=== PATIENT | male | born 1995 | race Caucasian/White ===

== ENCOUNTER 2021-09-13 13:36 | Emergency (ER) | payer SELFPAY ==
[2021-09-13 14:01] VITALS: BP 103/70; PULSE 65; RESP 16; TEMP 36.4; O2SAT 97; BMI 23.5
--- NOTE | 2021-09-13 14:10 | W.ED.EYEPROB ---
HPI - Eye Problem General: Chief complaint: Eye Problems Stated complaint: left eye injury Time Seen by Provider: 09/13/21 14:09 History of Present Illness: Patient is a 26-year-old male comes to the ED with left eye complaint. Yesterday evening patient said something got into his left eye and he was having mild pain and redness last night. This morning woke up and his symptoms were worse. Pain and I was rated a 9 out of 10. any light or whenever he opens his eye causes worsening pain. He endorses that it feels like there is something still in his eye. Says any movement of his left eye causes pain as well. He also has some left upper and lower eyelid swelling as well. Associated symptoms: Reports headache(s); Denies fever(s), nausea, neck pain or vomiting Review of Systems Const: Denies: fever(s), chills or fatigue Eyes: Reports: photophobia (Left eye), eye discomfort (Left eye), eye redness (Left eye) and increased production of tears (Left eye); Denies: change in vision ENMT: Denies: throat pain, odynophagia, nasal discharge or nasal congestion Card: Denies: chest pain, palpitations, edema, swelling of feet/ankles, dyspnea on exertion or orthopnea Resp: Denies: dyspnea, productive cough or non-productive cough GI: Denies: abdominal pain, nausea, vomiting, diarrhea, constipation or hematochezia : Denies: flank pain, difficulty urinating, dysuria or hematuria Musc: Denies: neck pain, back pain or extremity swelling Skin/Breast: Denies: rash or new lesions Neuro: Reports: headache(s); Denies: numbness in extremities or weakness in extremities PFS ED PFSH: Medical History (Updated 09/13/21 @ 17:15 by CHIO Valentin) No pertinent family history Surgical History (Updated 09/13/21 @ 17:15 by CHIO Valentin) No pertinent past surgical history Physical Exam Const: COMMON NORMALS: patient oriented x3 and alert GENERAL APPEARANCE: cooperative HENMT: COMMON NORMALS: normocephalic HEAD & SCALP: normocephalic MOUTH: Normal oral and palatal mucosa present THROAT: posterior oropharynx normal and uvula midline Eye: COMMON NORMALS: Equal, round and reactive pupils present PERIORBITAL: periorbital findings abnormal positive left periorbital swelling EYELID: eyelid abnormality left upper eyelid swelling and left lower eyelid swelling CONJUNCTIVA: Yes conjunctival abnormal positive left conjunctival injection diffuse PUPIL: Yes Equal, round and reactive pupils present OTHER: Fluorescein dye and lamp exam performed on left abrasion noted. Neck/C-Spine: COMMON NORMALS: supple GENERAL: Yes normal visual inspection Resp: COMMON NORMALS: normal respiratory effort, No retractions, No use of accessory muscles and clear to auscultation bilaterally AUSCULTATION: clear to auscultation bilaterally Cardio: COMMON NORMALS: regular rate, regular rhythm, S1 normal heart sound present, S2 normal heart sound present, No gallops present (Cardio), No clicks present (Cardio), No murmurs present (Cardio) and Peripheral pulses 2+ throughout RATE: regular rate RHYTHM: regular rhythm HEART SOUNDS: S1 normal heart sound present and S2 normal heart sound present PERIPHERAL PULSES: Peripheral pulses 2+ throughout GI: COMMON NORMALS: Normal to inspection, nondistended, normoactive bowel sounds present, Soft to palpation, non-tender and no masses PALPATION: Yes Soft to palpation : COMMON NORMALS: Yes no CVA tenderness BLADDER/KIDNEY EXAM: Yes no CVA tenderness Back/Pelvis: COMMON NORMALS: no CVA tenderness Extremity: COMMON NORMALS: normal to inspection Neuro: COMMON NORMALS: patient oriented x3 and moves all extremities SENSORIUM/ORIENTATION: Yes alert Skin: GENERAL SKIN EXAM: dry skin Course Vital Signs: Vital signs: Vital Signs Temperature 97.6 F 09/13/21 14:01 Pulse Rate 65 09/13/21 14:01 Respiratory Rate 16 09/13/21 14:01 Blood Pressure 103/70 09/13/21 14:01 Pulse Oximetry 97 09/13/21 14:01 [facility] - Eye Problem Medical Decision Making Patient is a 26 y/o male comes to the ED with left eye pain and redness. Patient thinks something got in his eye last night and his symptoms have worsened today. He has pain with any movement of the left eye along with eyelid swelling. Patient has corneal abrasion on left eye noted after fluorescein dye and lamp exam. Vital stable. Orbital CT done and showed some mild preseptal inflammation but no post septal inflammation noted. Patient got updated tetanus here in the ED today. Patient diagnosed with corneal abrasion and was discharged home with Maxitrol drops and hydrocodone for pain. He was given Dr. Peterson contact information told to call them tomorrow to set up an appointment for further evaluation. Return ED precautions given. Patient resting agree with plan. Lab Data : 09/13/21 15:[address] 09/13/21 14:44 IMPRESSION: Mild soft tissue swelling over the left orbit which appears to be mild preseptal inflammation with no postseptal inflammation. Discharge Plan Discharge Patient Disposition: Home Clinical Impression: Corneal abrasion Qualifiers: Encounter type: initial encounter Laterality: left Qualified Code(s): S05.02XA - Injury of conjunctiva and corneal abrasion without foreign body, left eye, initial encounter Condition: Stable Prescriptions: New Maxitrol 3.5mg/mL-10,000 unit/mL-0.1 % drops,suspension 1 drp ophthalmic (eye) Q6H 7 Days Qty: 5 0RF Discharge Orders: Discharge ED (Routine); Ordered 09/13/21 Ordered By: Mynor Muir Referrals: Yuri Richard, [facility] MANAGER-C [Primary Care Provider] - Discharge Diet: Regular Discharge Activity: Increase activity as tolerated Patient Instructions: Corneal Abrasion (DC), Opioid Safety Activity Restrictions/Additional Instructions: Follow-up with medical provider as directed. Call Dr. Peterson [facility] on Tomorrow morning phone number is [phone]. Address is [facility] [address] Wenceslao Collins. take medications as prescribed. Return to the ER or your medical provider if condition worsens. Please read and understand discharge instructions. If any questions, please ask. Coding Level of Care Code ED Ointment Mill Tender for Tiffanie Fwalta Exam Comprehensive
--- NOTE | 2021-09-13 14:44 | CTR_ITS ---
PROCEDURE INFORMATION: Exam: CT Orbits With Contrast Exam date and time: 09/13/2021 4:02 PM Age: 26 years old Clinical indication: Eye pain; Left; Additional info: Left eye pain, swelling. Pain w/ eye movement TECHNIQUE: Imaging protocol: Computed tomography of the orbits with contrast. Radiation optimization: All CT scans at this facility use at least one of these dose optimization techniques: automated exposure control; mA and/or kV adjustment per patient size (includes targeted exams where dose is matched to clinical indication); or iterative reconstruction. Contrast material: OMNI 350; Contrast volume: 75 ml; Contrast route: INTRAVENOUS (IV); COMPARISON: No relevant prior studies available. RADIATION DOSE METRICS: Total DLP (mGy-cm): 331.28 FINDINGS: Paranasal sinuses: Normal. No air-fluid levels. Orbital cavities: Mild soft tissue swelling over the left orbit which appears to be mild preseptal inflammation with no postseptal inflammation. Bones/joints: No acute fracture. Soft tissues: No significant facial soft tissue swelling. CT/CT orbit BI w con [id number] IMPRESSION: Mild soft tissue swelling over the left orbit which appears to be mild preseptal inflammation with no postseptal inflammation.
[2021-09-13] MEDS: HYDROcodone-acetaminophen 7.5-325 mg Tablet 1 TAB PO (15:11)
[2021-09-13] MEDS: iohexol 350 mg/mL 100 mL Btl IV (16:07)
[2021-09-13] MEDS: fluorescein 1 mg Strip EYE-LEFT (16:31)
[2021-09-13] MEDS: eye irrigation 30 mL Btl EYE-LEFT (16:31)
[2021-09-13] MEDS: tetracaine 0.5% Op Soln 4 mL Btl 1 DROP EYE-LEFT (17:33)
[2021-09-13] MEDS: tetanus-dipt-pertussis 0.5 mL SDV IM (17:33)
[2021-09-13 17:34] VITALS: PULSE 61; RESP 15; O2SAT 98
== END 2021-09-13 17:35 | disposition home or self-care (01) ==
PROVIDERS: Emergency Provider Physician Assistant; PCP Nurse Practitioner
DX: S05.02XA Injury of conjunctiva and corneal abrasion without foreign body, left eye, initial encounter (principal); X58.XXXA Exposure to other specified factors, initial encounter; Z23 Encounter for immunization
CPT/HCPCS: 70481; 85025; 90471; 90715; 99283; Q9967

== ENCOUNTER 2022-01-30 20:17 | Emergency (ER) | payer SELFPAY ==
[2022-01-30 20:50] VITALS: BP 121/78; PULSE 65; RESP 16; TEMP 36.8; O2SAT 99; BMI 22.7
[2022-01-30 21:08] LABS: Basophils % 0.4 %; Eosinophils % 0.2 %; Hematocrit 44.9 % (42.0-52.0); Hemoglobin 15.2 g/dL (11.7-16.6); Lymphocytes # 2.3 10^3/uL (0.8-4.8); Lymphocytes % 27.3 %; Mean Corpuscular HGB Conc 33.9 g/dL (30.0-36.0); Mean Corpuscular Volume 91.4 fl (80-94); Mean Platelet Volume 8.8 fL (7.4-10.4); Monocytes # 0.9 10^3/uL (0.2-0.9); Monocytes % 10.5 %; Neutrophils # 5.06 10^3/uL (1.8-7.7); Neutrophils % 61.2 %; Nucleated Red Blood Cells % 0 %; Platelet Count 323 10^3/cmm (130-400); Red Blood Count 4.91 10^6/uL (4.1-5.3); Red Cell Distribution Width 13.1 % (12.1-15.1); White Blood Count 8.3 10^3/uL (4.0-10.0)
[2022-01-30 21:39] LABS: Alanine Aminotransferase 20 U/L (0-41); Albumin Level 4.7 g/dL (3.5-5.2); Alkaline Phosphatase 67 U/L (40-130); Anion Gap 14.9 (5-19); Aspartate Amino Transferase 18 U/L (0-40); Blood Urea Nitrogen 18 mg/dL (6-20); Calcium 9.9 mg/dL (8.5-10.5); Carbon Dioxide 28 mmol/L (22-29); Chloride 100 mmol/L (98-107); Globulin 3.4 g/dL (1.3-4.6); Glomerular Filtration Rate 116.9 mL/min (90-130); Glucose 90 mg/dL (65-115); Lipase 21 U/L (13-60); Osmolality Calculated 289 mOsm/kg (285-295); Potassium 3.9 mmol/L (3.5-5.1); Sodium 139 mmol/L (136-145); Total Bilirubin 0.3 mg/dL (0.15-1.2); Total Protein 8.1 g/dL (6.6-8.7)
== END 2022-01-30 22:45 | disposition left against medical advice (07) ==
PROVIDERS: Emergency Medicine; Emergency Provider Family Medicine; PCP Nurse Practitioner
DX: Z53.21 Procedure and treatment not carried out due to patient leaving prior to being seen by health care provider (principal)
CPT/HCPCS: 80053; 83690; 85025; 99283

== ENCOUNTER → 2022-02-09 12:05 | Outpatient (BNVA) | payer SELFPAY | PROVIDERS: PCP Nurse Practitioner; Visit Provider Nurse Practitioner Family | DX: R11.10 Vomiting, unspecified (principal) | CPT/HCPCS: 87400 ==

== ENCOUNTER 2022-10-04 14:16 | Inpatient (IN) | payer SELFPAY ==
[2022-10-04 14:20] VITALS: BP 117/79; PULSE 67; RESP 16; O2SAT 97
[2022-10-04 14:48] LABS: Basophils % 0.7 %; Eosinophils % 0.5 %; Hemoglobin 14.6 g/dL (11.7-16.6); Lymphocytes # 1.5 10^3/uL (0.8-4.8); Lymphocytes % 25.9 %; Mean Corpuscular HGB Conc 33.2 g/dL (30.0-36.0); Mean Corpuscular Volume 90.5 fl (80-94); Mean Platelet Volume 9.1 fL (7.4-10.4); Monocytes # 0.4 10^3/uL (0.2-0.9); Monocytes % 6.1 %; Neutrophils # 3.88 10^3/uL (1.8-7.7); Neutrophils % 66.3 %; Nucleated Red Blood Cells % 0 %; Platelet Count 347 10^3/cmm (130-400); Red Blood Count 4.86 10^6/uL (4.1-5.3); Red Cell Distribution Width 13.8 % (12.1-15.1); White Blood Count 5.9 10^3/uL (4.0-10.0)
[2022-10-04 15:05] LABS: Alanine Aminotransferase 10 U/L (0-41); Albumin Level 4.8 g/dL (3.5-5.2); Alkaline Phosphatase 55 U/L (40-130); Anion Gap 14.2 (5-19); Aspartate Amino Transferase 17 U/L (0-40); Blood Urea Nitrogen 14 mg/dL (6-20); Calcium 9.6 mg/dL (8.5-10.5); Carbon Dioxide 27 mmol/L (22-29); Chloride 105 mmol/L (98-107); Globulin 2.6 g/dL (1.3-4.6); Glomerular Filtration Rate 101.2 mL/min (90-130); Glucose 96 mg/dL (65-115); Osmolality Calculated 294 mOsm/kg (285-295); Potassium 4.2 mmol/L (3.5-5.1); Sodium 142 mmol/L (136-145); Total Bilirubin 0.3 mg/dL (0.15-1.2); Total Protein 7.4 g/dL (6.6-8.7)
[2022-10-04 15:06] LABS: Acetaminophen < 5.0 ug/mL (10-30); Alcohol Level < 10 mg/dL (0-10); Salicylate < 0.3 mg/dL (3-10)
--- NOTE | 2022-10-04 15:30 | ED.C_ITS ---
HPI - Psych General: Chief Complaint: Psychiatric Symptoms Stated Complaint: DEPRESSION/ STRESS Time Seen by Provider: 10/04/22 14:19 Source: patient and EMS Mode of arrival: EMS Limitations: no limitations History of Present Illness: 27-year-old male states over the last year has been dealing with severe depression he states his dad a year ago and he has been severely depressed and its almost every restrain he is feeling worse he denies being suicidal homicidal but states he is just having extreme feelings of worthlessness he is not on any meds has not seen a psychiatrist in the past. He states he feels like he is to the point where he needs to be admitted to get help. Associated symptoms: Reports depression Review of Systems Const: Denies: fever(s) or chills Eyes: Denies: eye discomfort ENMT: Denies: throat pain or dental pain Card: Denies: chest pain Resp: Denies: dyspnea GI: Denies: abdominal pain, nausea or vomiting Musc: Denies: neck pain or back pain Skin/Breast: Denies: rash Neuro: Denies: headache(s) Psych: Reports: depression [facility] ED PFSH: Medical History No pertinent family history Psychiatric care Surgical History No pertinent past surgical history Physical Exam Const: COMMON NORMALS: no acute distress, patient oriented x3 and healthy appe aring HENMT: COMMON NORMALS: normocephalic and atraumatic HEAD & SCALP: normocephalic and atraumatic Eye: COMMON NORMALS: Equal, round and reactive pupils present PUPIL: Yes Equal, round and reactive pupils present Neck/C-Spine: COMMON NORMALS: full ROM and supple Chest: COMMONS NORMALS: normal inspection of the chest Resp: COMMON NORMALS: normal respiratory effort Cardio: COMMON NORMALS: regular rate, regular rhythm and No murmurs present (Cardio) RATE: regular rate RHYTHM: regular rhythm GI: INSPECTION: Yes normal to inspection Extremity: COMMON NORMALS: normal to inspection and full ROM Neuro: COMMON NORMALS: patient oriented x3, moves all extremities and no focal motor deficits Psych: COMMON NORMALS: mental status grossly normal, Normal thought process present and cooperative MOOD & AFFECT: Yes depressed mood THOUGHT PROCESS: Normal thought process present Skin: COMMON NORMALS: no rashes or lesions noted and no wounds GENERAL SKIN EXAM: no rashes or lesions noted Course Vital Signs: Vital signs: Vital Signs Pulse Rate 67 10/04/22 14:20 Respiratory Rate 16 10/04/22 14:20 Blood Pressure 117/79 10/04/22 14:20 Pulse Oximetry 97 10/04/22 14:20 Oxygen Delivery Me thod Room Air 10/04/22 14:20 MDM - Psych Medical Decision Making Patient presents here with depression did speak to psychiatrist will admit him on a voluntary status he is medically cleared Lab Data 10/04/22 14:34 10/04/22 14:34 Laboratory Results WBC 5.9 10^3/uL (4.0-10.0) 10/04/22 14:34 RBC 4.86 10^6/uL (4.1-5.3) 10/04/22 14:34 Hgb 14.6 g/dL (11.7-16.6) 10/04/22 14:34 Hct 44.0 % (42.0-52.0) 10/04/22 14:34 MCV 90.5 fl (80-94) 10/04/22 14:34 MCH 30.0 pg (28.0-34.0) 10/04/22 14:34 MCHC 33.2 g/dL (30.0-36.0) 10/04/22 14:34 RDW 13.8 % (12.1-15.1) 10/04/22 14:34 Plt Count 347 10^3/cmm (130-400) 10/04/22 14:34 MPV 9.1 fL (7.4-10.4) 10/04/22 14:34 Neut % (Auto) 66.3 % 10/04/22 14:34 Lymph % (Auto) 25.9 % 10/04/22 14:34 Mchenry % (Auto) 6.1 % 10/04/22 14:34 Eos % (Auto) 0.5 % 10/04/22 14:34 Baso % (Auto) 0.7 % 10/04/22 14:34 Neut # (Auto) 3.88 10^3/uL (1.8-7.7) 10/04/22 14:34 Lymph # (Auto) 1.5 10^3/uL (0.8-4.8) 10/04/22 14:34 Mchenry # (Auto) 0.4 10^3/uL (0.2-0.9) 10/04/22 14:34 Eos # (Auto) 0.0 10^3/uL (0.0-0.8) 10/04/22 14:34 Baso # (Auto) 0.0 10^3/uL (0.0-0.1) 10/04/22 14:34 Nucleated RBC % (auto) 0 % 10/04/22 14:34 Nucleated RBCs # 0.0 /100WBC 10/04/22 14:34 Sodium 142 mmol/L (136-145) 10/04/22 14:34 Potassium 4.2 mmol/L (3.5-5.1) 10/04/22 14:34 Chloride 105 mmol/L (98-107) 10/04/22 14:34 Carbon Dioxide 27 mmol/L (22-29) 10/04/22 14:34 Anion Gap 14.2 (5-19) 10/04/22 14:34 BUN 14 mg/dL (6-20) 10/04/22 14:34 Creatinine 0.9 mg/dL (0.7-1.2) 10/04/22 14:34 GFR Calculation 101.2 mL/min (90-130) 10/04/22 14:34 Glucose 96 mg/dL (65-115) 10/04/22 14:34 Calculated Osmolality 294 mOsm/kg (285-295) 10/04/22 14:34 Calcium 9.6 mg/dL (8.5-10.5) 10/04/22 14:34 Total Bilirubin 0.3 mg/dL (0.15-1.2) 10/04/22 14:34 AST 17 U/L (0-40) 10/04/22 14:34 ALT 10 U/L (0-41) 10/04/22 14:34 Alkaline Phosphatase 55 U/L (40-130) 10/04/22 14:34 Total Protein 7.4 g/dL (6.6-8.7) 10/04/22 14:34 Albumin 4.8 g/dL (3.5-5.2) 10/04/22 14:34 Globulin 2.6 g/dL (1.3-4.6) 10/04/22 14:34 Salicylates < 0.3 mg/dL (3-10) L 10/04/22 14:34 Acetaminophen < 5.0 ug/mL (10-30) L 10/04/22 14:34 Ethyl Alcohol < 10 mg/dL (0-10) 10/04/22 14:34 Discharge Plan Discharge Patient Disposition: Admitted As Inpatient Admit Provider: Doc Patiño Clinical Impression: Depression Condition: Stable Coding Level of Care Code ED Sales Training Coordinator for Tiffanie Perez
[2022-10-04 17:50] VITALS: BP 119/77; PULSE 66; RESP 16; TEMP 36.8; O2SAT 98
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
[2022-10-04] MEDS: hyDROXYzine 25 mg Capsule 50 MG PO ×2 (18:50→21:35)
[2022-10-04] MEDS: nicotine 2 mg Gum BUCCAL (18:50)
[2022-10-04 21:30] VITALS: BP 118/78; PULSE 73; RESP 19; TEMP 36.9; O2SAT 98
[2022-10-04] MEDS: trazodone 50 mg Tablet PO ×2 (21:35→22:48)
[2022-10-05 06:00] VITALS: RESP 16
--- NOTE | 2022-10-05 07:07 | P.NPUHP_ITS ---
Providers/Chief Complaint Admitting Physician: Doc Patiño MD Primary Care Provider: CULLEN Johnson Chief Complaint: DEPRESSION/ STRESS HPI NPU History of Present Illness Trevor Malone is a 27 year old male who presented to the emergency department with the following report: Chief Complaint: Psychiatric Symptoms Stated Complaint: DEPRESSION/ STRESS Time Seen by Provider: 10/04/22 14:19 Source: patient and EMS Mode of arrival: EMS Limitations: no limitations History of Present Illness: 27-year-old male states over the last year has been dealing with severe depression he states his dad a year ago and he has been severely depressed and its almost every restrain he is feeling worse he denies being suicidal homicidal but states he is just having extreme feelings of worthlessness he is not on any meds has not seen a psychiatrist in the past. He states he feels like he is to the point where he needs to be admitted to get help. Associated symptoms: Reports depression. The patient was admitted to the neuropsychiatric unit for definitive treatment of those issues. The patient reports that he is not currently prescribed psychiatric medications. He reports that when he was younger, he took Adderall for ADHD, which he stopped because he felt he was addicted. He reports that he is here now secondary to his fianc? saying he needed to get help, but she didn?t tell him with what, but she called the police, and they called the paramedics, and he was brought here. He denies previous psychiatric hospitalization. He rep orts that he has been to [facility] but didn?t really get in for an appointment. He reports that he smokes about a pack of cigarettes a day. He endorses a little alcohol use. He denies regular marijuana use, but uses when he ?feels the need for it.? He denies cocaine, methamphetamine, or any other illicit drug use. He denies drug rehabilitation, DUI, or drug related charges. He reports that his mental health issues mostly started when his dad , and the anniversary of his dad?s is coming up. He in October, shortly after his birthday which was [birth year]. His dad was 40 something, he had congestive heart failure and he from a heart attack. He had some anxiety previously, but it got worse after his father ?s . He reports that when he and his girlfriend were having a spat recently, he sat on the bed and could not stop crying, which is when she said he needed to get help. He denies suicidal thoughts or attempts. He denies feelings of hopelessness, helplessness, or worthlessness. He does endorse anxiety, which manifests in some physical symptoms when it is at the w orst. He denies drinking yesterday. He stated he wasn?t sure what made his fianc? that nervous about his behavior yesterday. He denies nightmares or flashbacks. He denies paranoia or auditory or visual hallucinations. PSYCHIATRIC HISTORY: As above. SUBSTANCE ABUSE HISTORY: As above. FAMILY HISTORY: The patient reports mental health issues on both sides of the family. He endorses addiction on dad?s side of the family, questionable on mom?s side of the family. He denies any suicide attempts or completions in the family. DEVELOPMENTAL HISTORY: The patient denies any issues with his mother?s or delivery of him. He learned to walk and talk and met developmental milestones on time. The patient endorses speech therapy, and denies learning support, emotional support, or spe cia education classes, but later reported that he has a learning disability. PSYCHOSOCIAL HISTORY: The patient reports that his mother and father were together when he was born and stayed together until his father?s . He reports that he has a younger brother from that same union. He denies any other children outside of that union. He describes his childhood as pretty easy. He denies CYS involvement. He denies any traumas in his life. He reports that he graduated from high school. He reports that he tried to go to college and dropped out. He endorses being bisexual, with his longest relationship being almost a year, with a female. He denies being or having any children. He has not been in the . He denies a mormon belief system. He reports that he can?t get a job because he has SSI secondary to a learning disability, trouble with reading and information processing. He reports that he has been on disability ever since he was young. He reports that he currently lives in a trailer with his fianc? and a service dog. LEGAL HISTORY: He reports that he was in correction once, for a false accusation, and he got out in one day. MEDICAL HISTORY: The patient denies any known allergies to medications. He reports that he had his tonsils removed. Per his 05/21/22 [facility] outpatient mental health assessment: [facility] Assessment Date of Service: 05/21/22 Time In: 13:00 Time Out: 14:00 Setting: Office Visit (Code:H0002 HO: # 4 Units. Clinical Access Accessment. Client Trevor Malone and [facility] Doris Lara in office. ) Is patient part of the 3700?: No Diagnosis (1) Generalized anxiety disorder: (2) Major depressive disorder, recurrent severe without psychotic features: (3) Post-traumatic stress disorder, unspecified: This diagnosis is based on information provided by patient during initial examination(s). Diagnosis may change as additional information becomes available through course of treatment. Above diagnosis Should Not be used for any purposes other than as a working diagnosis for medical care of the patient, including determination of whether the patient?s condition is sufficiently acute to impair the patient?s ability to work or perform other routine tasks. History of Present Illness Presenting Problem/Chief Complaint: According to Trevor, I have been diagnosed with depression by a counselor in [facility]. I do get anxious a lot, especially when I am in a crowd of people . Lost my dad October 2022, unexpected and i am still struggling with the loss, witnessed him dying . I don't speak about things that are bothering me instead I will take it out on the ones I love. I want to get in for Medication, Therapy and Casemanagment . I do have anger issues and would like help with my anger and managing it. ? Me and my girlfriend are in an open relationship, women only, I get upset too much when these men disrespect my ole lady, that's really when i get mad. I had to move because a girlfriend was causing me trouble. I am unable to work, i have been on disability for a long time. Current Psychiatric and Physical Symptoms:: trouble with sleep, unable to shut off thoughts, has multiple thoughts, will self isolate and shut down won't speak with fiance, emotional eater. Struggles t o manage moods especially anger.? Childhood and Family History Grew up in [place] with mother, father and brother. Went to high school, then in 11th grade moved to [facility]. No abuse no neglect as a child. Met fiance and now has step son that is 4 years old. The mother does n ot have the child.? Abuse/Neglect/Trauma: Trauma Experienced (Past relationship was traumatic, Fa ther passing, Aunt passing ) Current/historical developmental milestones and/or delays:: None reported Accommodations: Literacy assistance (At times hard to read) Family Psychiatric History: Anxiety, Bipolar, Depression and Violent/Abusive Behavior Social History Current Living Environment: Parent/Immediate Family Living environment is reported to be?: Good Reports Feeling: Safe Does patient need help completing personal and oral hygiene?: No Client?s interactions regarding social/peer relationships are: Family and Friends Vocational Information: Disabled Financial Information: Disability Income Client's employment History Disability Does client have valid seasonal driver's license?: No (I.D. ) History: Client denies service Abilities/Interests Likes music, video games, reading, anime Individual's Strengths: Food, Stable Housing, Active Insurance, Transportation Support, Cooperative, Social Supports, Has Hobbies (Camping ) and Good Communication Individual's Obstacles: Limited Income, Low Self-Esteem, Chronic Mental Illness, Medication Non-Compliance and Limited Insight Legal Status/History: Current legal issues denied Demographics Marital Status: life partner (Will be soon ) Ethnicity: Cultural Background: None Reported Spiritual Pursuits: Other (none reported ) Do you think of yourself as: Bisexual Gender Identity: Male What is your pronoun?: he/him/his Language(s) Spoken: [place]al[place] Custody/Guardianship He radha his own guardian Education Highest Education Level Reached: college (Some college ) Academic Performance: Performance at grade level Extracurricular Activities: None and Other (AG class) Special Accommodations: Special Classroom Arrangements (Special ed for most classes) Disciplinary Actions: None Health Is Patient in Pain?: No Primary Care Provider: No Have you been seen by your primary care provider or SENIOR STAFF PSYCHOLOGIST in the past 12 months?: No Meds NPU Home Medications Medication Instructions Recorded Confirmed Last Taken Type No Known Home Medications 10/04/22 10/04/22 Unknown History Allergies Allergy/AdvReac Type Severity Reaction Status Date / Time No Known Allergies Allergy Verified 10/04/22 15:23 PFSH NPU PFSH: Medical History No pertinent family history Psychiatric care Surgical History No pertinent past surgical history Mental Status Exam MSE Comments: This is a well-nourished, well-developed white male, in hospital scrubs, with adequate grooming and eye contact. No abnormal movements except for mild p sychomotor retardation. Cooperative with exam in no acute distress. Speech was normal rate and volume. Mood described as pretty good; affect congruent. Thought process, organized. Thought content: patient denied any suicidal or homicidal ideation, there were no delusions reported or noted, patient denied any auditory or visual hallucinations. Attention, concentration, and memory appeared intact, but none were formally tested. Alert and oriented times three. Insight and judgment are limited. Impulse control is limited. Intellectual ability limited versus impaired. Vitals/I&O/Wt Last Vital Signs Temp 98.5 F 10/04/22 21:30 Pulse 73 10/04/22 21:30 Resp 16 10/05/22 06:00 BP 118/78 10/04/22 21:30 Pulse Ox 98 10/04/22 21:30 O2 Del Method Room Air 10/04/22 21:30 Weight last 48 hrs Weight 68.039 kg Data NPU 10/04/22 14:34 10/04/22 14:34 A&P Assessment and plan (1) Major depressive disorder, recurrent, moderate: (2) Generalized anxiety disorder: (3) Bereavement: (4) Mild intellectual disabilities: (5) Borderline intellectual functioning: Plan This is a 27-year-old, white male, with some history of anxiety, which increased after his father?s , and depression, with a desire to get help with depression and anxiety symptoms. 1. Start Prozac 20 mg p.o. every morning. 2. Encourage individual, group, and milieu therapy. 3. Continue q-15-minute checks for safety. Involuntary Hold Information 96 Hour Hold: 96 Hour Involuntary Admission: No Attestations NPU Medical Necessity Statement*: Inpatient hospitalization is medically necessary and the clinically appropriate intervention, at this time. We will monitor medications and make changes as indicated. Patient will be in the hospital for over two midnights. Likely length of stay is three to five days. Coding Level of Care Code Acute Code for g Fwd Diagnoses Major depressive disorder, recurrent, moderate F33.1 Generalized anxiety disorder F41.1 Bereavement Z63.4 Mild intellectual disabilities F70 Borderline intellectual functioning R41.83
--- NOTE | 2022-10-05 08:54 | PC.NURSE ---
RESTING IN BED AROUSES TO VOICE. PT DENIES PAIN, DENIES SI/HI AND AVH AT THIS TIME. PT IS WITHDRAWN AND ISOLATES TO ROOM. DID GET UP TO EAT BREAKFAST THEN WENT BACK TO BED.
[2022-10-05] MEDS: nicotine 2 mg Gum BUCCAL ×4 (09:09→21:03)
[2022-10-05] MEDS: hyDROXYzine 25 mg Capsule 50 MG PO ×2 (11:15→21:34)
--- NOTE | 2022-10-05 11:16 | PC.NURSE ---
Patient asked to talk with this nurse. During the discussion, patient stated that he didn't want to be here, that he feels trapped. Patient said he called and talked to his mom about it who told him to talk to the doctor. This nurse also encouraged that patient to talk with the doctor. Patient wants to be put on medications. This nurse informed him that the doctor could do that, and that it is beneficial to his care if he is here so we can monitor him to see if the medicaion is working for him or not. This nurse administered 50mg Vistaril to patient. Patient now sitting in dayroom. Will continue to monitor.
[2022-10-05 14:00] VITALS: BP 104/67; PULSE 63; RESP 18; TEMP 36.4; O2SAT 97
[2022-10-05] MEDS: trazodone 50 mg Tablet PO (21:36)
[2022-10-05] MEDS: OLANZapine 5 mg ODT PO (21:36)
[2022-10-05 22:00] VITALS: BP 114/75; PULSE 78; RESP 16; O2SAT 98
[2022-10-06 06:00] VITALS: BP 101/65; PULSE 53; RESP 16; TEMP 37; O2SAT 98
--- NOTE | 2022-10-06 08:38 | W.PM.NPUPNS ---
Subjective NPU Subjective: Patient presented today reporting that he is feeling a little better. He endorsed that the medication seems to be helping and he denied any feelings consistent with how he felt prior to admission. He began his focus on discharge and we discussed the likelihood of discharge in 48 hours. Mental Status Exam MSE Comments: This is a well-nourished, well-developed white male, in hospital scrubs, with adequate grooming and eye contact. No abnormal movements except for mild psychomotor retardation. Cooperative with exam in no acute distress. Speech was normal rate and volume. Mood described as a little better; affect euthymic, but a little odd. Thought process, organized. Thought content: patient denied any suicidal or homicidal ideation, there were no delusions reported or noted, patient denied any auditory or visual hallucinations. Attention, concentration, and memory appeared intact, but none were formally tested. Alert and oriented times three. Insight and judgment are limited. Impulse control is limited. Intellectual ability limited versus impaired. Vitals/I&O/Wt Last Vital Signs Temp 98.6 F 10/06/22 06:00 Pulse 53 L 10/06/22 06:00 Resp 16 10/06/22 06:00 BP 101/65 10/06/22 06:00 Pulse Ox 98 10/06/22 06:00 O2 Del Method Room Air 10/06/22 06:00 Weight last 48 hrs Weight 68.039 kg Data NPU 10/04/22 14:34 10/04/22 14:34 A&P Assessment and plan (1) Major depressive disorder, recurrent, moderate: (2) Generalized anxiety disorder: (3) Bereavement: (4) Mild intellectual disabilities: (5) Borderline intellectual functioning: Plan This is a 27-year-old, white male, with some history of anxiety, which increased after his father?s , and depression, with a desire to get help with depression and anxiety symptoms. 1. Started Prozac 20 mg p.o. every morning. 2. Encourage individual, group, and milieu therapy. 3. Continue q-15-minute checks for safety. Involuntary Hold Information 96 Hour Hold: 96 Hour Involuntary Admission: No Attestations NPU Medical Necessity Statement*: Inpatient hospitalization is medically necessary and the clinically appropriate intervention, at this time. We will monitor medications and make changes as indicated. Likely length of stay is 2-4 days. Coding Level of Care Code Acute Code for Chg Fwd Diagnoses Major depressive disorder, recurrent, moderate F33.1 Generalized anxiety disorder F41.1 Bereavement Z63.4 Mild intellectual disabilities F70 Borderline intellectual functioning R41.83
[2022-10-06] MEDS: fluoxetine 20 mg Capsule PO (09:36)
[2022-10-06] MEDS: nicotine 2 mg Gum BUCCAL ×6 (09:36→22:38)
[2022-10-06 14:00] VITALS: BP 123/88; PULSE 67; RESP 17; TEMP 37; O2SAT 97
[2022-10-06 16:24] LABS: Amphetamines Screen Urine Negative (Negative); Barbiturates Screen Urine Negative (Negative); Benzodiazepines Screen Urine Negative (Negative); Cocaine Screen Urine Negative (Negative); Opiate Screen Urine Negative (Negative); PCP Screen Urine Negative (Negative); THC Screen Urine Positive (Negative)
[2022-10-06] MEDS: trazodone 50 mg Tablet PO (20:26)
[2022-10-06] MEDS: hyDROXYzine 25 mg Capsule 50 MG PO (20:26)
[2022-10-06 21:39] VITALS: BP 125/84; PULSE 77; RESP 17; TEMP 36.7; O2SAT 96
[2022-10-07 06:00] VITALS: BP 120/81; PULSE 76; RESP 18; TEMP 37.1; O2SAT 97
[2022-10-07] MEDS: nicotine 2 mg Gum BUCCAL ×8 (06:50→23:33)
[2022-10-07] MEDS: fluoxetine 20 mg Capsule PO (08:43)
--- NOTE | 2022-10-07 09:01 | P.NPUPN_ITS ---
Subjective NPU Subjective: Patient presented today reporting that he feels much better compared to when he got here. He endorsed the medication is helpful he denied any side effects at this time. He reported working with social work team tomorrow for appropriate follow-up and barring any changes planning for discharge tomorrow. Mental Status Exam MSE Comments: This is a well-nourished, well-developed white male, in hospital scrubs, with adequate grooming and eye contact. No abnormal movements except for mild psychom otor retardation. Cooperative with exam in no acute distress. Speech was normal rate and volume. Mood described as better; affect euthymic, but a little odd. Thought process, organized. Thought content: patient denied any suicidal or homicidal ideation, there were no delusions reported or noted, patient denied any auditory or visual hallucinations. Attention, concentration, and memory appeared intact, but none were formally tested. Alert and oriented times three. Insight and judgment are limited. Impulse control is limited. Intellectual ability limited versus impaired. Vitals/I&O/Wt Last Vital Signs Temp 97.4 F L 10/07/22 14:00 Pulse 77 10/07/22 14:00 Resp 17 10/07/22 14:00 BP 117/77 10/07/22 14:00 Pulse Ox 98 10/07/22 14:00 O2 Del Method Room Air 10/07/22 14:00 Weight last 48 hrs Weight 59.477 kg Weight 59.477 kg Data NPU 10/04/22 14:34 10/04/22 14:34 A&P Assessment and plan (1) Major depressive disorder, recurrent, moderate: (2) Generalized anxiety disorder: (3) Bereavement: (4) Mild intellectual disabilities: (5) Borderline intellectual functioning: Plan This is a 27-year-old, white male, with some history of anxiety, which increased after his father?s , and depression, with a desire to get help with depression and anxiety symptoms. 1. Started Prozac 20 mg p.o. every morning. 2. Encourage individual, group, and milieu therapy. 3. Continue q-15-minute checks for safety. Involuntary Hold Information 96 Hour Hold: 96 Hour Involuntary Admission: No Attestations NPU Medical Necessity Statement*: Inpatient hospitalization is medically necessary and the clinically appropriate intervention, at this time. We will monitor medications and make changes as indicated. Likely length of stay is 1-3 days. Coding Level of Care Code Acute Code for Chg Fwd Diagnoses Major depressive disorder, recurrent, moderate F33.1 Generalized anxiety disorder F41.1 Bereavement Z63.4 Mild intellectual disabilities F70 Borderline intellectual functioning R41.83
[2022-10-07 14:00] VITALS: BP 117/77; PULSE 77; RESP 17; TEMP 36.3; O2SAT 98
[2022-10-07] MEDS: acetaminophen 325 mg Tablet 650 MG PO (15:14)
[2022-10-07 20:00] VITALS: BP 108/68; PULSE 74; RESP 18; TEMP 37; O2SAT 98
[2022-10-07] MEDS: trazodone 50 mg Tablet PO (20:31)
[2022-10-07] MEDS: hyDROXYzine 25 mg Capsule 50 MG PO (20:31)
[2022-10-08 06:00] VITALS: BP 105/67; PULSE 57; RESP 18; TEMP 36.5; O2SAT 97
[2022-10-08] MEDS: fluoxetine 20 mg Capsule PO (08:23)
[2022-10-08] MEDS: nicotine 2 mg Gum BUCCAL ×2 (08:24→12:24)
--- NOTE | 2022-10-08 10:49 | W.PM.NPUDCS ---
Diagnoses at Discharge Discharge Diagnosis (1) Major depressive disorder, recurrent, moderate: Status: Acute (2) Generalized anxiety disorder: Status: Acute (3) Bereavement: Status: Acute (4) Mild intellectual disabilities: Status: Acute (5) Borderline intellectual functioning: Status: Acute Reason for Visit Reason for Visit: DEPRESSION/ STRESS Brief History: Trevor Malone is a 27 year old male who presented to the emergency department with the following report: Chief Complaint: Psychiatric Symptoms Stated Complaint: DEPRESSION/ STRESS Time Seen by Provider: 10/04/22 14:19 Source: patient and EMS Mode of arrival: EMS Limitations: no limitations History of Present Illness: 27-year-old male states over the last year has been dealing with severe depression he states his dad a year ago and he has been severely depressed and its almost every restrain he is feeling worse he denies being suicidal homicidal but states he is just having extreme feelings of worthlessness he is not on any meds has not seen a psychiatrist in the past. He states he feels like he is to the point where he needs to be admitted to get help. Associated symptoms: Reports depression. The patient was admitted to the neuropsychiatric unit for definitive treatment of those issues. The patient reports that he is not currently prescribed psychiatric medications. He reports that when he was younger, he took Adderall for ADHD, which he stopped because he felt he was addicted. He reports that he is here now secondary to his fianc? saying he needed to get help, but she didn?t tell him with what, but she called the police, and they called the paramedics, and he was brought here. He denies previous psychiatric hospitalization. He reports that he has been to [facility] but didn?t really get in for an appointment. He reports that he smokes about a pack of cigarettes a day. He endorses a little alcohol use. He denies regular marijuana use, but uses when he ?feels the need for it.? He denies cocaine, methamphetamine, or any other illicit drug use. He denies drug rehabilitation, DUI, or drug related charges. He reports that his mental health issues mostly started when his dad , and the anniversary of his dad?s is coming up. He in October, shortly after his birthday which was [birth year]. His dad was 40 something, he had congestive heart failure and he from a heart attack. He had some anxiety previously, but it got worse after his father ?s . He reports that when he and his girlfriend were having a spat recently, he sat on the bed and could not stop crying, which is when she said he needed to get help. He denies suicidal thoughts or attempts. He denies feelings of hopelessness, helplessness, or worthlessness. He does endorse anxiety, which manifests in some physical symptoms when it is at the worst. He denies drinking yesterday. He stated he wasn?t sure what made his fianc? that nervous about his behavior yesterday. He denies nightmares or flashbacks. He denies paranoia or auditory or visual hallucinations. PSYCHIATRIC HISTORY: As above. SUBSTANCE ABUSE HISTORY: As above. FAMILY HISTORY: The patient reports mental health issues on both sides of the family. He endorses addiction on dad?s side of the family, questionable on mom?s side of the family. He denies any suicide attempts or completions in the family. DEVELOPMENTAL HISTORY: The patient denies any issues with his mother?s or delivery of him. He learned to walk and talk and met developmental milestones on time. The patient endorses speech therapy, and denies learning support, emotional support, or special education classes, but later reported that he has a learning disability. PSYCHOSOCIAL HISTORY: The patient reports that his mother and father were together when he was born and stayed together until his father?s . He reports that he has a younger brother from that same union. He denies any other children outside of that union. He describes his childhood as pretty easy. He denies CYS involvement. He denies any traumas in his life. He reports that he graduated from high school. He reports that he tried to go to college and dropped out. He endorses being bisexual, with his longest relationship being almost a year, with a female. He denies being or having any children. He has not been in the . He denies a congregational belief system. He reports that he can?t get a job because he has SSI secondary to a learning disability, trouble with reading and information processing. He reports that he has been on disability ever since he was young. He reports that he currently lives in a trailer with his fianc? and a service dog. LEGAL HISTORY: He reports that he was in [facility] once, for a false accusation, and he got out in one day. MEDICAL HISTORY: The patient denies any known allergies to medications. He reports that he had his tonsils removed. Per his 05/21/22 [facility] outpatient mental health assessment: [facility] Assessment Date of Service: 05/21/22 Time In: 13:00 Time Out: 14:00 Setting: Office Visit (Code:H0002 HO: # 4 Units. Clinical Access Accessment. Client Trevor Malone [facility] in office. ) Is patient part of the 3700?: No Diagnosis (1) Generalized anxiety disorder: (2) Major depressive disorder, recurrent severe without psychotic features: (3) Post-traumatic stress disorder, unspecified: This diagnosis is based on information provided by patient during initial examination(s). Diagnosis may change as additional information becomes available through course of treatment. Above diagnosis Should Not be used for any purposes other than as a working diagnosis for medical care of the patient, including determination of whether the patient?s condition is sufficiently acute to impair the patient?s ability to work or perform other routine tasks. History of Present Illness Presenting Problem/Chief Complaint: According to Trevor, I have been diagnosed with depression by a counselor in [facility]. I do get anxious a lot, especially when I am in a crowd of people . Lost my dad October 2022, unexpected and i am still struggling with the loss, witnessed him dying . I don't speak about things that are bothering me instead I will take it out on the ones I love. I want to get in for Medication, Therapy and Casemanagment . I do have anger issues and would like help with my anger and managing it. Me and my girlfriend are in an open relationship, women only, I get upset too much when these men disrespect my ole lady, that's really when i get mad. I had to move because a girlfriend was causing me trouble. I am unable to work, i have been on disability for a long time. Current Psychiatric and Physical Symptoms:: trouble with sleep, unable to shut off thoughts, has multiple thoughts, will self isolate and shut down won't speak with fiance, emotional eater. Struggles to manage moods especially anger. Childhood and Family History Grew up in [place] with mother, father and brother. Went to high school, then in 11th grade moved to [facility]. No abuse no neglect as a child. Met fiance and now has step son that is 4 years old. The mother does n ot have the child. Abuse/Neglect/Trauma: Trauma Experienced (Past relationship was traumatic, Father passing, Aunt passing ) Current/historical developmental milestones and/or delays:: None reported Accommodations: Literacy assistance (At times hard to read) Family Psychiatric History: Anxiety, Bipolar, Depression and Violent/Abusive Behavior Social History Current Living Environment: Parent/Immediate Family Living environment is reported to be?: Good Reports Feeling: Safe Does patient need help completing personal and oral hygiene?: No Client?s interactions regarding social/peer relationships are: Family and Friends Vocational Information: Disabled Financial Information: Disability Income Client's employment History Disability Does client have valid bobcat driver/labor's license?: No (I.D. ) History: Client denies service Abilities/Interests Likes music, video games, reading, anime Individual's Strengths: Food, Stable Housing, Active Insurance, Transportation Support, Cooperative, Social Supports, Has Hobbies (Camping ) and Good Communication Individual's Obstacles: Limited Income, Low Self-Esteem, Chronic Mental Illness, Medication Non-Compliance and Limited Insight Legal Status/History: Current legal issues denied Demographics Marital Status: life partner (Will be soon ) Ethnicity: Cultural Background: None Reported Spiritual Pursuits: Other (none reported ) Do you think of yourself as: Bisexual Gender Identity: Male What is your pronoun?: he/him/his Language(s) Spoken: Syriac Custody/Guardianship He radha his own guardian Education Highest Education Level Reached: college (Some college ) Academic Performance: Performance at grade level Extracurricular Activities: None and Other (AG class) Special Accommodations: Special Classroom Arrangements (Special ed for most classes) Disciplinary Actions: None Health Is Patient in Pain?: No Primary Care Provider: No Have you been seen by your primary care provider or STOCK BROKER SUPERVISOR in the past 12 months?: No Hospital Course Hospital Course He slowly acclimated to the individual, group and milieu therapies provided.? He has been off of his medications for many years maybe back to adolescence. His presentation was fairly amorphous but he did report wanting help with anxiety and depression. We started Prozac 20 mg p.o. daily as well as trazodone 50 mg p.o. daily to assist with sleep. He was able to work with the social work team to identify outpatient/aftercare resources for treatment. He had modest improvement and was able to contract for safety outside of the hospital prior to discharge.? During the hospitalization, patient had routine laboratory studies which were within normal limits except for few outliers.? Additionally there was a general medical evaluation which was also within normal limits and revealed no new acute processes. At the time of discharge, he denied psychosis or lethality.? Mood and anxiety were well managed.? Patient endorsed a plan to avoid all drugs of abuse and follow-up with the aftercare recommendations of the treatment team.? Patient was evaluated and deemed to be absent credible lethality, and had achieved the maximum benefit from an inpatient hospitalization, so was discharged.?? Involuntary Hold Information 96 Hour Hold: 96 Hour Involuntary Admission: No Mental Status Exam MSE Comments: This is a well-nourished, well-developed white male, in hospital scrubs, with adequate grooming and eye contact. No abnormal movements except for mild psychomotor retardation. Cooperative with exam in no acute distress. Speech was normal rate and volume. Mood described as better; affect euthymic, but a little odd. Thought process, organized. Thought content: patient denied any suicidal or homicidal ideation, there were no delusions reported or noted, patient denied any auditory or visual hallucinations. Attention, concentration, and memory appeared intact, but none were formally tested. Alert and oriented times three. Insight and judgment are limited. Impulse control is limited. Intellectual ability limited versus impaired. Discharge Data Studies Completed and Pending: Laboratory Results WBC 5.9 10^3/uL (4.0- 10.0) 10/04/22 14:34 RBC 4.86 10^6/uL (4.1 -5.3) 10/04/22 14:34 Hgb 14.6 g/dL (11.7-1 6.6) 10/04/22 14:34 Hct 44.0 % (42.0-52.0 ) 10/04/22 14:34 MCV 90.5 fl (80-94) 10/04/22 14:34 MCH 30.0 pg (28.0-34. 0) 10/04/22 14:34 MCHC 33.2 g/dL (30.0-3 6.0) 10/04/22 14:34 RDW 13.8 % (12.1-15.1 ) 10/04/22 14:34 Plt Count 347 10^3/cmm (130 -400) 10/04/22 14:34 MPV 9.1 fL (7.4-10.4) 10/04/22 14:34 Neut % (Auto) 66.3 % 10/04/22 14:34 Lymph % (Auto) 25.9 % 10/04/22 14:34 Cocke % (Auto) 6.1 % 10/04/22 14:34 Eos % (Auto) 0.5 % 10/04/22 14:34 Baso % (Auto) 0.7 % 10/04/22 14:34 Neut # (Auto) 3.88 10^3/uL (1.8 -7.7) 10/04/22 14:34 Lymph # (Auto) 1.5 10^3/uL (0.8- 4.8) 10/04/22 14:34 Cocke # (Auto) 0.4 10^3/uL (0.2- 0.9) 10/04/22 14:34 Eos # (Auto) 0.0 10^3/uL (0.0- 0.8) 10/04/22 14:34 Baso # (Auto) 0.0 10^3/uL (0.0- 0.1) 10/04/22 14:34 Nucleated RBC % (a uto) 0 % 10/04/22 14:34 Nucleated RBCs # 0.0 /100WBC 10/04/22 14:34 Sodium 142 mmol/L (136-1 45) 10/04/22 14:34 Potassium 4.2 mmol/L (3.5-5 .1) 10/04/22 14:34 Chloride 105 mmol/L (98-10 7) 10/04/22 14:34 Carbon Dioxide 27 mmol/L (22-29) 10/04/22 14:34 Anion Gap 14.2 (5-19) 10/04/22 14:34 BUN 14 mg/dL (6-20) 10/04/22 14:34 Creatinine 0.9 mg/dL (0.7-1. 2) 10/04/22 14:34 GFR Calculation 101.2 mL/min (90- 130) 10/04/22 14:34 Glucose 96 mg/dL (65-115) 10/04/22 14:34 Calculated Osmolal ity 294 mOsm/kg (285- 295) 10/04/22 14:34 Calcium 9.6 mg/dL (8.5-10 .5) 10/04/22 14:34 Total Bilirubin 0.3 mg/dL (0.15-1 .2) 10/04/22 14:34 AST 17 U/L (0-40) 10/04/22 14:34 ALT 10 U/L (0-41) 10/04/22 14:34 Alkaline Phosphata se 55 U/L (40-130) 10/04/22 14:34 Total Protein 7.4 g/dL (6.6-8.7 ) 10/04/22 14:34 Albumin 4.8 g/dL (3.5-5.2 ) 10/04/22 14:34 Globulin 2.6 g/dL (1.3-4.6 ) 10/04/22 14:34 Salicylates < 0.3 mg/dL (3-10 ) L 10/04/22 14:34 Urine Opiates Scre en Negative ng/mL (N egative) 10/06/22 15:40 Acetaminophen < 5.0 ug/mL (10-3 0) L 10/04/22 14:34 Ur Barbiturates Sc reen Negative ng/mL (N egative) 10/06/22 15:40 Ur Phencyclidine S crn Negative ng/mL (N egative) 10/06/22 15:40 Ur Amphetamines Sc reen Negative ng/mL (N egative) 10/06/22 15:40 U Benzodiazepines Scrn Negative ng/mL (N egative) 10/06/22 15:40 Urine Cocaine Scre en Negative ng/mL (N egative) 10/06/22 15:40 U Marijuana (THC) Screen Positive ng/mL (N egative) H 10/06/22 15:40 Ethyl Alcohol < 10 mg/dL (0-10) 10/04/22 14:34 Vitals: Last Vital Signs Temp 97.7 F 10/08/22 06:00 Pulse 57 L 10/08/22 06:00 Resp 18 10/08/22 06:00 BP 105/67 08/14/23 06:00 Pulse Ox 97 10/08/22 06:00 O2 Del Method Room Air 10/08/22 06:00 Discharge Plan Discharge Patient Disposition: Home Condition: Stable Prescriptions: New trazodone 50 mg Tablet 50 mg PO BEDTIME PRN (Reason: Sleep) 30 Days Qty: 30 1RF fluoxetine 20 mg Capsule 20 mg PO DAILY 30 Days Qty: 30 1RF No Action No Known Home Medications Discharge Orders: Discharge Order (Routine); Ordered 10/08/22 Ordered By: Doc Patiño Referrals: [facility] [Outside] - 10/11/22 11:30 am (Initial appointment) Discharge Diet: Regular Discharge Activity: Resume usual activity Patient Instructions: Fluoxetine (By mouth), Trazodone (By mouth), Opioid Safety Discharge Attestations NPU Time Spent in Discharge Care*: less than 30 min Specific Discharge Activities: Specific discharge activities: educating patient, discussing with community case manager/social workers/dc planners, documenting/other paperwork and evaluating patient/reviewing data Coding Level of Care Code Acute Chg FW DC note Diagnoses Major depressive disorder, recurrent, moderate F33.1 Generalized anxiety disorder F41.1 Bereavement Z63.4 Mild intellectual disabilities F70 Borderline intellectual functioning R41.83
[2022-10-08 10:58] VITALS: BP 105/67; PULSE 57; RESP 18; TEMP 36.5; O2SAT 97
== END 2022-10-08 13:01 | disposition home or self-care (01) | DRG 885 ==
LOC: ER 14:39 → NP 14:58
PROVIDERS: Admitting Provider Psychiatry & Neurology Psychiatry; Emergency Provider Emergency Medicine; PCP Nurse Practitioner; Visit Provider Psychiatry & Neurology Psychiatry
DX: F33.1 Major depressive disorder, recurrent, moderate (principal); F41.1 Generalized anxiety disorder; Z63.4 Disappearance and death of family member; F70 Mild intellectual disabilities
CPT/HCPCS: 36415; 80053; 80306; 80307; 85025; 97165; 99238; 99285

== ENCOUNTER 2025-01-16 17:19 | Emergency (ER) | payer SELFPAY ==
[2025-01-16 17:23] VITALS: BP 104/65; PULSE 59; RESP 14; TEMP 36.8; O2SAT 99; BMI 22.4
--- NOTE | 2025-01-16 18:16 | CTR_ITS ---
PROCEDURE INFORMATION: Exam: CT Abdomen And Pelvis Without Contrast Exam date and time: 01/16/2025 6:31 PM Age: 29 years old Clinical indication: Abdominal pain; Right; C/O RT flank pain x 3 days; Additional info: R flank radiating pain TECHNIQUE: Imaging protocol: Computed tomography of the abdomen and pelvis without contrast. Radiation optimization: All CT scans at this facility use at least one of these dose optimization techniques: automated exposure control; mA and/or kV adjustment per patient size (includes targeted exams where dose is matched to clinical indication); or iterative reconstruction. COMPARISON: CR XR chest 1V [id number] 02/03/2019 9:18 AM RADIATION DOSE METRICS: Total DLP (mGy-cm): 332.22 FINDINGS: Liver: Normal. No mass. Gallbladder and biliary ducts: Normal. No calcified stones. No ductal dilation. Pancreas: Normal. No ductal dilation. Spleen: Normal. No splenomegaly. Adrenal glands: Normal. No mass. Kidneys and ureters: Normal. No hydronephrosis. Stomach and bowel: Suggestion of few scattered colonic diverticula without definite significant acute inflammatory changes. Appendix: No evidence of appendicitis. Intraperitoneal space: Unremarkable. No free air. No significant fluid collection. Vasculature: Unremarkable. No abdominal aortic aneurysm. Lymph nodes: Unremarkable. No enlarged lymph nodes. Urinary bladder: Unremarkable as visualized. Reproductive: Unremarkable as visualized. Bones/joints: Unremarkable. No acute fracture. Soft tissues: Unremarkable. CT/CT kidney stone [id number] IMPRESSION: Suggestion of few scattered colonic diverticula without definite significant acute inflammatory changes. No definite radiopaque renal calculi or acute obstructive uropathy.
[2025-01-16 18:20] VITALS: BP 116/72; PULSE 65; O2SAT 97
[2025-01-16 18:39] LABS: Glucose Urine UA Negative (Normal); Nitrate Urine Negative (Negative); Specific Gravity, Urine 1.021 (1.005-1.030)
[2025-01-16] MEDS: oxyCODONE 5 mg IR Tab/Cap PO (19:06)
--- NOTE | 2025-01-16 19:25 | ED_ITS ---
HPI - Back Pain/Injury General: Chief Complaint: Back Pain/Injury Stated Complaint: lower Back Pain Time Seen by Provider: 01/16/25 18:03 History of Present Illness: Patient is a 29-year-old male with no reported past medical history who presents with three days of right-sided lower flank cramping pain described as stabbing in nature. The pain is worsened by walking and bending over. He denies any history of trauma, car accidents, or back surgeries. There are no associated urinary symptoms, fever, vomiting, diarrhea, or left-sided pain. Bowel movements are reported as normal, and he has tried topical roll-on analgesics without relief. Has never had a pain like this prior, no history of abdominal or back surgeries. Related Data Previous Rx's ?Medication ?Instructions ?Recorded fluoxetine 40 mg capsule 40 mg PO DAILY #30 caps 09/26 04/21 mirtazapine 15 mg tablet 15 mg PO .HS #30 tabs amoxicillin 875 mg-potassium 1 tab PO BID #14 tabs clavulanate 125 mg tablet ondansetron 4 mg disintegrating 4 mg PO Q8H 5 days #15 tabs 01/16/25 tablet oxycodone 5 mg tablet 5 mg PO BID PRN pain #6 tabs 01/16/25 Allergies Allergy/AdvReac Type Severity Reaction Status Date / Time No Known Allergies Allergy Verified 01/16/25 17:27 Review of Systems General: Reports: 10 or more systems reviewed and unremarkable except in HPI and below : Reports: flank pain [facility] ED PFSH: Medical History (Updated 01/16/25 @ 19:21 by Agapito Borrego DO) Depression Psychiatric care No pertinent family history Surgical History No pertinent past surgical history Physical Exam Narrative: EXAM NARRATIVE: Well-appearing, vital signs stable on arrival, afebrile, no acute distress. Abdomen soft, nontender, nondistended, bowel sounds intact, no overlying skin changes, moderate right CVA tenderness, positive Yoseph's punch, negative left CVA tenderness. No midline CTL tenderness, no step-offs, no erythema or bruising. 5 out of 5 motor and sensation to bilateral lower extremities. GCS 15, breathing comfortably on room air, normal sinus rhythm with no murmurs, no leg swelling. Course Vital Signs: Vital signs: Vital Signs Temperature 98.2 F 01/16/25 17:23 Pulse Rate 50 L 01/16/25 19:54 Respiratory Rate 14 01/16/25 17:23 Blood Pressure 104/64 01/16/25 19:54 Pulse Oximetry 98 01/16/25 19:54 Oxygen Delivery Me thod Room Air 01/16/25 18:20 MDM - Back Pain/Injury Medical Decision Making -ddx: Nephrolithiasis, pyelonephritis, perinephric abscess, cystitis, MSK strain, appendicitis, intestinal pathology, dehydration - Patient arrives with 3 days of intermittent right flank pain with no prior trauma, no history of kidney issues, no abdominal or back surgeries, no systemic signs of infection. Urine negative for any infection at this time, CT scan ultimately with no obvious urinary tract pathology, no kidney stones, hydronephrosis, bladder wall thickening, did see multiple areas of diverticulosis, could not rule out diverticulitis, does seem to be a strange presentation of that but reasonable that some intestinal inflammation could caus e some associated back pain, has not really had other infectious symptoms but moderately tender on exam and so to be safe, we will give him watch and wait antibiotics with Augmentin to cover a diverticulitis and instructed him when to exactly take this if he develops fevers, starts having vomiting or feeling ill. Given Zofran and a small supply of oxycodone to treat if this was a passed kidney stone and is still having some residual pain from this, encouraged to stay hydrated and to follow-up with PCP in a few days for reevaluation, strict return precautions given, mother at bedside. Labs Radiology Impressions Abdomen/Pelvis CT 01/16/25 18:16 IMPRESSION: Suggestion of few scattered colonic diverticula without definite significant acute inflammatory changes. No definite radiopaque renal calculi or acute obstructive uropathy. Laboratory Results Urine Color Yellow (Yellow) 01/16/25 18:14 Urine Appearance Clear (CLEAR) 01/16/25 18:14 Urine pH 7.0 (5-7) 01/16/25 18:14 Ur Specific [place] 1.021 (1.005-1.030) 01/16/25 18:14 Urine Protein Negative (Negative) 01/16/25 18:14 Urine Glucose (UA) Negative (Normal) 01/16/25 18:14 Urine Ketones Negative (Negative) 01/16/25 18:14 Urine Blood Negative (Negative) 01/16/25 18:14 Urine Nitrate Negative (Negative) 01/16/25 18:14 Urine Bilirubin Negative (Negative) 01/16/25 18:14 Urine Urobilinogen 1.0 mg/dL (Negative) 01/16/25 18:14 Ur Leukocyte Esterase Negative (Negative) 01/16/25 18:14 Urine RBC 0-2 /hpf (0-2) 01/16/25 18:14 Urine WBC 0-5 /hpf (0-5) 01/16/25 18:14 Ur Squamous Epith Cells 0-5 /hpf (0-5) 01/16/25 18:14 Amorphous Sediment Not Reportable 01/16/25 18:14 Urine Bacteria None seen /hpf (NONE) 01/16/25 18:14 Hyaline Casts 0-4 /lpf H 01/16/25 18:14 All radiology interpretation(s) finalized by discharge Discharge Plan Discharge Patient Disposition: Home Clinical Impression: Acute flank pain Condition: Stable Prescriptions: New amoxicillin-pot clavulanate 875-125 mg tablet 1 tab PO BID Qty: 14 0RF oxycodone 5 mg tablet 5 mg PO BID PRN (Reason: pain) Qty: 6 0RF ondansetron 4 mg tablet,disintegrating 4 mg PO Q8H 5 Days Qty: 15 0RF No Action mirtazapine 15 mg tablet 15 mg PO .HS Qty: 30 4RF fluoxetine 40 mg capsule 40 mg PO DAILY Qty: 30 4RF Discharge Orders: Discharge ED (Routine); Ordered 01/16/25 Ordered By: Agapito Borrego Patient Instructions: Opioid Safety, Pain Management, Patient Portal & Charanjit Instructions Activity Restrictions/Additional Instructions: You were seen for your back pain, you were evaluated with a urine test and CT scan that were ultimately reassuring today for no emergent conditions. You possibly had early findings of diverticulitis on your CT scan and so if you start to feel ill, have vomiting or worsening abdominal pain, start taking the antibiotics, Augmentin twice a day for total of 7 days, if you start taking the antibiotics, make sure you finish the whole course. For any nausea, use the Zofran 4 mg every 8 hours as needed. For the pain, alternate ibuprofen 400 mg and Tylenol 650 mg every 4 hours as needed, use oxycodone 5 mg every 8 hours as needed for breakthrough pain on top of this, do not operate heavy machinery or drive with this medication as it can be sedating. Follow-up with your primary care physician early next week for reevaluation of your symptoms. Ensure you stay hydrated because this could have also been a passed kidney stone and that is the best way to prevent future ones. Return to the ED with severe worsening or pain, fevers that do not improve with Tylenol, continuous vomiting, any other emergent concerns. Print Language: Stateless Coding Level of Care Code ED Fishing Tool Operator for Tiffanie Perez
[2025-01-16 19:54] VITALS: BP 104/64; PULSE 50; O2SAT 98
== END 2025-01-16 19:55 | disposition home or self-care (01) ==
PROVIDERS: Emergency Provider Student in an Organized Health Care Education/Training Program
DX: R10.A1 Flank pain, right side (principal)
CPT/HCPCS: 74176; 81001; 99284; J9999